=== PATIENT | female | born 1980 | race African-American/Black ===

== ENCOUNTER 2016-05-20 09:58 | Emergency (ER) | payer BC ==
[~2016-05-20] VITALS: Ht 170.2 cm; Wt 69.4 kg
[2016-05-20 10:43] VITALS: BP 139/65
[2016-05-20] MEDS ORDERED: FLUT9.9S NS (11:57)
--- NOTE | 2016-05-20 11:58 | PHYS DOC ---
Past Medical History Past Medical History: No Pertinent History Past Surgical History: No Surgical History Additional Information: occasional Alcohol Use: Occasionally Drug Use: None Adult General Chief Complaint Chief Complaint: EARACHE/EAR PAIN HPI HPI Patient is a 35 year old female who presents with left ear pressure for 3 weeks. She's noted decreased hearing in the left ear as well. She does use Q- tips at home. She denies any drainage from the ear. She's not had any fever or nasal congestion. She has a mild sore throat and is just beginning to have a mild cough. She denies any sick contacts. She does not have a PCP. Review of Systems Review of Systems Constitutional: Denies fever or chills. [] Eyes: Denies change in visual acuity, redness, or eye pain. [] HENT: Denies nasal congestion. Reports left ear pressure, decreased hearing in the left ear, and mild sore throat. Respiratory: Denies shortness of breath. Reports mild cough. Integument: Denies rash or skin lesions. [] Neurologic: Denies headache, focal weakness or sensory changes. [] Allergies Allergies Allergies Coded Allergies Type Severity Reaction Last Updated Verified No Known Drug Allergies 05/20/16 No Physical Exam Physical Exam Constitutional: Well developed, well nourished, no acute distress, non-toxic appearance. [] HENT: Normocephalic, atraumatic, bilateral external ears normal, oropharynx moist, no oral exudates, nose normal. Right TM and ear canal within normal limits. There is a cerumen impaction in the left ear canal obscuring the left TM. There is no posterior pharyngeal erythema or tonsillar edema. Bilateral nasal turbinates are swollen and erythematous with purulent drainage. Eyes: PERRLA, EOMI, conjunctiva normal, no discharge. [] Neck: Normal range of motion, no tenderness, supple, no stridor. [] Cardiovascular:Heart rate regular rhythm, no murmur [] Lungs & Thorax: Bilateral breath sounds clear to auscultation [] Skin: Warm, dry, no erythema, no rash. [] Neurologic: Alert and oriented X 3, normal motor function, normal sensory function, no focal deficits noted. [] Psychologic: Affect normal, judgement normal, mood normal. [] Current Patient Data Vital Signs Vital Signs Date Time Temp Pulse Resp B/P Pulse Ox O2 Delivery O2 Flow Rate FiO2 2/18/17 10:43 98.3 84 20 100 Room Air 98.3 EKG EKG [] Radiology/Procedures Radiology/Procedures [] Course & Med Decision Making Course & Med Decision Making Pertinent Labs and Imaging studies reviewed. (See chart for details) Patient presents with left ear pressure for 3 weeks. On exam, this is due to a cerumen impaction. battery technician irrigated the ear canal with removal of a significant amount of cerumen. I examined the patient after irrigation. The TM is intact without erythema or bulging. There is no erythema or excoriation of the ear canal. She is discharged with prescription for Flonase. She is instructed not to use Q-tips for cerumen removal. Return precautions are discussed. She verbalizes understanding and agrees with plan. Dragon Disclaimer Dragon Disclaimer This electronic medical record was generated, in whole or in part, using a voice recognition dictation system. Departure Departure Impression: Primary Impression: Impacted cerumen of left ear Disposition: HOME, SELF-CARE Condition: STABLE Referrals: NO PCP (PCP) Patient Instructions: Cerumen Impaction Additional Instructions: The ear pressure and decreased hearing in your left ear was due to excessive wax buildup. The wax was removed in the emergency department today. You do not appear to have an ear infection. Please use the prescribed nasal spray on a daily basis to decrease nasal swelling and drainage. This will help with your sore throat and cough. Please follow-up with a primary care provider within the next week. Return to the emergency department if you have any new or concerning symptoms. Scripts Fluticasone Propionate (Flonase Allergy Relief)9.9 Ml [place].susp2 Sprays NS DAILY #1 BOTTLE Prov:JOSELITO ROCK 05/20/16 JOSELITO ROCK May 20, 2016 11:58
== END 2016-05-20 12:10 | disposition home or self-care (01) ==
LOC: ER 09:58
DX: H61.22 Impacted cerumen, left ear (principal)
CPT/HCPCS: 69209; 99282

== ENCOUNTER 2017-11-19 15:50 | Emergency (ER) | payer BC ==
[~2017-11-19] VITALS: Ht 170.2 cm; Wt 73.9 kg
[~2017-11-19 15:50] MED LIST: FLUT9.9S NS
[2017-11-19 16:42] VITALS: BP 144/76
[2017-11-19] MEDS ORDERED: DEXAMETHASONE SOD PHOS 20 MG/5 ML VIAL. IM ONE (17:15)
[2017-11-19] MEDS ORDERED: LIDOCAINE 2% VISCOUS 15 ML SOLUTION. SWSW ONE (17:15)
[2017-11-19] MEDS ORDERED: PENICILLIN G BENZATHINE LA 1,200,000 UNIT/2 ML DISP.SYRIN. IM ONE (17:15)
--- NOTE | 2017-11-19 17:32 | PHYS DOC ---
Past Medical History Past Medical History: No Pertinent History Past Surgical History: No Surgical History Alcohol Use: Occasionally Drug Use: None Adult General Chief Complaint Chief Complaint: SORE THROAT HPI HPI Patient is a 37 year old female who presents today complaining of a sore throat times one day. Patient denies any cough or congestion but states she has subjective fevers and body aches. Review of Systems Review of Systems Constitutional: Reports subjective fevers Eyes: Denies change in visual acuity, redness, or eye pain [] HENT: Reports sore throat. Denies nasal congestion ] Respiratory: Denies cough or shortness of breath [] Cardiovascular: No additional information not addressed in HPI [] GI: Denies abdominal pain, nausea, vomiting, bloody stools or diarrhea [] : Denies dysuria or hematuria [] Musculoskeletal: Denies back pain or joint pain [] Integument: Denies rash or skin lesions [] Neurologic: Denies headache, focal weakness or sensory changes [] All other systems were reviewed and found to be within normal limits, except as documented in this note. Current Medications Current Medications Current Medications Medications (Trade) Dose Ordered Sig/Mynor Start Time Stop Time Status Last Admin Dose Admin Dexamethasone Sodium Phosphate (Decadron) 10 mg 1X ONCE 11/19/17 17:15 11/19/17 17:16 DC 11/19/17 17:24 10 MG Lidocaine HCl (Viscous Lidocaine) 15 ml 1X ONCE 11/19/17 17:15 11/19/17 17:16 DC 11/19/17 17:19 15 ML Penicillin G Benzathine (Bicillin L-A) 1,200,000 unit 1X ONCE 11/19/17 17:15 11/19/17 17:16 DC 11/19/17 17:25 1,200,000 UNIT Allergies Allergies Allergies Coded Allergies Type Severity Reaction Last Updated Verified No Known Drug Allergies 05/20/16 No Physical Exam Physical Exam Constitutional: Well developed, well nourished, no acute distress, non-toxic appearance. [] HENT: Normocephalic, atraumatic, bilateral external ears normal, oropharynx moist, no oral exudates, nose normal. [] Posterior pharynx with moderate erythema, exudate on the right side, +2 anterior cervical adenopathy to the right side. No abscesses noted on physical exam. Patient tolerating saliva. Eyes: PERRLA, EOMI, conjunctiva normal, no discharge. [] Neck: Normal range of motion, no tenderness, supple, no stridor. [] Cardiovascular:Heart rate regular rhythm, no murmur [] Lungs & Thorax: Bilateral breath sounds clear to auscultation [] Abdomen: Bowel sounds normal, soft, no tenderness, no masses, no pulsatile masses. [] Skin: Warm, dry, no erythema, no rash. [] Back: No tenderness, no CVA tenderness. [] Extremities: No tenderness, no cyanosis, no clubbing, ROM intact, no edema. [] Neurologic: Alert and oriented X 3, normal motor function, normal sensory function, no focal deficits noted. [] Psychologic: Affect normal, judgement normal, mood normal. [] Current Patient Data Vital Signs Vital Signs Date Time Temp Pulse Resp B/P (MAP) Pulse Ox O2 Delivery O2 Flow Rate FiO2 11/19/17 16:42 98.5 110 20 144/76 (98) 99 Room Air 98.5 EKG EKG [] Radiology/Procedures Radiology/Procedures [] Course & Med Decision Making Course & Med Decision Making Pertinent Labs and Imaging studies reviewed. (See chart for details) Positive rapid strep. Was treated with Bicillin in the ED. Saltwater gargles recommended, Tylenol Motrin for pain or fever. Discharged with prednisone for 4 days. First does given in the ED. Dragon Disclaimer Dragon Disclaimer This electronic medical record was generated, in whole or in part, using a voice recognition dictation system. Departure Departure Impression: Primary Impression: Acute streptococcal pharyngitis Disposition: 01 HOME, SELF-CARE Condition: STABLE Referrals: NO PCP (PCP) follow up with your doctor in 1 week Patient Instructions: Strep Throat, Group A Streptococcus Additional Instructions: You were treated in the emergency room for strep infection. Take the prednisone prescribed for the next 4 days. Take Tylenol or Motrin for pain or fever. Use saltwater gargles. Come back to the emergency room at any point symptoms worsen. Scripts Prednisone (PREDNISONE) 50 Mg Tablet 1 TAB PO DAILY, #4 TAB Prov: SHIRLEY BOLTON APRN 11/19/17 SHIRLEY BOLTON APRN Nov 19, 2017 17:32
[2017-11-19] MEDS ORDERED: PRED50TA PO (17:35)
== END 2017-11-19 17:47 | disposition home or self-care (01) ==
LOC: ER 15:50
DX: J02.0 Streptococcal pharyngitis (principal)
CPT/HCPCS: 87880; 96372; 99284; J0561; J1100

== ENCOUNTER 2019-06-14 08:38 | Emergency (ER) | payer BC ==
[~2019-06-14 08:38] MED LIST changes: +PRED50TA PO
== END 2019-06-14 10:30 | disposition left against medical advice (07) ==
LOC: ER 08:38
DX: Z03.818 Encounter for observation for suspected exposure to other biological agents ruled out (principal); Z53.21 Procedure and treatment not carried out due to patient leaving prior to being seen by health care provider